=== PATIENT | female | born 1935 | race Caucasian/White ===

== ENCOUNTER → 2017-12-10 | Outpatient (CLI) | payer MEDICARE, BC ==
[2017-12-10 13:37] LABS: Blood Urea Nitrogen 10 mg/dL (7-17)
--- NOTE | 2017-12-10 15:20 | CT ---
EXAMINATION TYPE: CT abdomen pelvis w con DATE OF EXAM: 12/10/2017 HISTORY: Abdominal pain CT DLP: 369.2mGycm Automated Exposure Control for Dose Reduction was Utilized. CONTRAST: CT scan of the abdomen and pelvis is performed with IV Contrast, patient injected with 100 mL of Isov ue 300. COMPARISON: None. FINDINGS: LUNG BASES: There is a partial intrathoracic stomach seen in the posterior left lateral mediastinum c reating compressive atelectasis that is subsegmental the left lung base or in minimal right basilar s ubsegmental atelectasis is also seen. Heart is nonenlarged. Residual contrast is noted within the par tial intrathoracic stomach. LIVER/GB: There is a biliary stent extending from the common bile duct into the duodenum with moderat e intrahepatic biliary ductal dilatation and mild pneumobilia as well as marked extrahepatic biliary ductal dilatation. There is also pancreatic ductal dilatation. Additionally within the inferior right hepatic lobe there is a simple fluid attenuated 1.2 cm hepatic cyst. PANCREAS: Delayed images there is bulbous prominence and abnormal enhancement of the pancreatic head measuring approximately 3.7 x 2.6 cm abutting the superior mesenteric vein and less than 180 degrees encompassing the common bile duct and narrowing the common bile duct and its midportion with patency due to the stent. Findings are concerning for underlying pancreatic neoplasm given the proximal ducta l dilatation. This has mass effect upon the duodenum as is deviated right laterally. SPLEEN: There is displacement of the spleen anteriorly by prolapse of the colon posterior laterally. Otherwise the spleen is unremarkable. ADRENALS: No significant abnormality is seen. KIDNEYS: There is mild right-sided hydronephrosis although no obstructing calculus is seen along the course of the ureter on CT. BOWEL: Postsurgical changes of the rectum are noted. No large or small bowel dilatation to suggest ob struction. Moderate amount retained colonic stool is noted. Again there is prolapse of the left hemic olon posterior to the spleen. Surgical clip is present anterior to the cecum. Pelvic floor relaxation is seen within numerous loops of small bowel deep within the low pelvis. These again are nondilated. UTERUS/ADNEXA: Either significantly atrophied or surgically absent. LYMPH NODES: No greater than 1cm abdominal or pelvic lymph nodes are appreciated. OSSEOUS STRUCTURES: Severe levoscoliotic curvature of the thoracolumbar spine is seen in combination with multilevel degenerative change of the spine. OTHER: Within the right gluteal soft tissues there is a sacral nerve root stimulator present. IMPRESSION: 1. Findings concerning for underlying pancreatic head neoplasm measuring up to 3.7 cm creating pancre atic ductal dilatation, marked extrahepatic biliary duct dilatation and moderate intrahepatic biliary ductal dilatation with biliary stent in place. Findings could be confirmed with dynamic enhanced MR abdomen as the suspected pancreatic head mass is ill-defined and suspected only on delayed imaging. 2. Mild right-sided hydronephrosis without radiopaque obstructing calculus. This could relate to nonr adiopaque obstructing calculus or ureteral stricture. 3. Partial intrathoracic stomach and retained contrast within the intrathoracic stomach suggesting de layed transit.
== END | disposition home or self-care (01) ==
LOC: RADCTMAIN 12:54
PROVIDERS: ATTEND Family Medicine
DX: N13.30 Unspecified hydronephrosis (principal)
CPT/HCPCS: 82565; 84520; 74177; 36415; Q9967

== ENCOUNTER → 2018-01-08 | Outpatient (CLI) | payer MEDICARE, BC | END | disposition home or self-care (01) | LOC: RADMRIMAIN 11:17 | PROVIDERS: ATTEND Family Medicine | DX: Z53.9 Procedure and treatment not carried out, unspecified reason (principal) ==

== ENCOUNTER 2018-03-12 10:55 | Day surgery (SDC) | payer MEDICARE, BC ==
[2018-03-10 14:23] VITALS: BMI 22.6
[~2018-03-12 10:55] MED LIST: INDOMETHACIN 50MG SUPPOSITORY RECTAL ONE; LEVOFLOXACIN 500MG-D5W PMX 500 MG in DEXTROSE/WATER 1 100ML.BAG IVPB STA; LIDOCAINE 1% 20 ML VIAL (10MG/ML) FOR IV START INTRADERMA PRN
[2018-03-12] MEDS: LACTATED RINGERS 1,000 ML IV SCH (12:12)
[2018-03-12 12:31] LABS: Basophils % (A) 1 %; Eosinophils # (A) 0.1 k/uL (0-0.7); Eosinophils % (A) 2 %; Lymphocytes # (A) 0.8 k/uL (1.0-4.8); Lymphocytes % (A) 20 %; MCH 29.7 pg (25.0-35.0); MCHC 33.2 g/dL (31.0-37.0); MCV 89.5 fL (80.0-100.0); Mean Platelet Volume 6.5; Monocytes # (A) 0.3 k/uL (0-1.0); Monocytes % (A) 8 %; Neutrophils # (A) 2.9 k/uL (1.3-7.7); Neutrophils % (A) 68 %; Platelet Count 209 k/uL (150-450); RBC 4.69 m/uL (3.80-5.40); WBC 4.3 k/uL (3.8-10.6)
[2018-03-12 12:42] LABS: Anion Gap 10 mmol/L; Blood Urea Nitrogen 13 mg/dL (7-17); Calcium 9.1 mg/dL (8.4-10.2); Carbon Dioxide 29 mmol/L (22-30); Chloride 103 mmol/L (98-107); Glucose 97 mg/dL (74-99); Sodium 142 mmol/L (137-145); Total Bilirubin 1.5 mg/dL (0.2-1.3); Total Protein 6.9 g/dL (6.3-8.2)
[2018-03-12 12:48] LABS: ALT 29 U/L (9-52); AST 30 U/L (14-36); Alkaline Phosphatase 131 U/L (38-126); Potassium 4.2 mmol/L (3.5-5.1)
[2018-03-12 12:52] LABS: Prothrombin Time 10.2 sec (9.0-12.0)
[2018-03-12] MEDS ORDERED: LIDOCAINE 1% INJ 10MG/ML (20 ML MDV) ONE (15:07)
[2018-03-12] MEDS ORDERED: GLUCAGON 1 MG/ML VIAL ONE (15:07)
[2018-03-12] MEDS ORDERED: PROPOFOL 10 MG/ML 20 ML VIAL IV ONE (15:07)
[2018-03-12] MEDS ORDERED: LABETALOL 5 MG/ML VIAL MDV ONE (15:07)
--- NOTE | 2018-03-12 16:07 | P.PCN ---
Date of Procedure: 03/12/18 Procedure(s) Performed: Brief history: Patient is a 82 year-old pleasant lady scheduled for an ERCP as part of evaluation of abdominal pain and mild elevation of serum transaminases. She had a CT of the abdomen and pelvis done that showed dilated intra-and extra hepatic biliary system and a 3 cm lesion in the head of the pancreas. Possibility of a stone versus mass as suggested by the radiologist. The patient had history of CBD stones in 2013 at which time she had an ERCP with the CBD stent placement and multiple stones extracted. Following the procedure she underwent gallbladder surgery with CBD exploration at the time of surgery no obvious CBD stones were identified. However she continued to have the stent in place and recent CAT scan showed CBD stent along with possible stone versus mass. She is hence scheduled for an ERCP to evaluate further. Procedure performed: ERCP, CBD stent removal/ extension of the biliary sphincterotomy, multiple stone extraction and CBD stent placement Preoperative diagnoses: Dilated CBD, possible CBD stone versus pancreatic mass IV sedation per anesthesia: Procedure: After informed consent was obtained from the patient and after the risks benefits and complications including bleeding perforation and pancreatitis explained in detail the patient was brought into the endoscopy unit. The patient was placed in prone position and IV conscious sedation was administered by anesthesia under continuous monitoring. The Olympus side-viewing duodenoscope was then inserted into the mouth and esophagus intubated without any difficulty. The scope was gradually advanced into the stomach and duodenum. The major papilla was identified without any difficulty. There was CBD stent in place which was removed without any difficulty. Initial cannulation resulted in opacification of the common bile duct through the existing biliary sphincterotomy site. Upon injection of the dye the common bile duct is dilated measuring at least 2 cm in diameter with multiple filling defects noted. At this time an 8 mm balloon was passed into the proximal CBD and multiple stones were removed. Following this an occlusion cholangiogram was performed. I could not remove couple of large stones administered in the proximal CBD. At this time I proceeded with extension of the biliary enterotomy site using a biliary sphincterotome by another 5 mm. Following this a 15 mm balloon was passed into the common bile duct over the guidewire and despite multiple attempts I was not able to remove the other stones. After trying this for several times I proceeded with a 7-Lithuanian 5 cm pigtail stent placement into the proximal CBD. The pancreatic duct was not cannulated. Patient tolerated the procedure well. Impression: Dilated common bile duct with multiple filling defects status post extension of the biliary sphincterotomy, multiple stone extraction, and CBD stent placement as toast large stones could not be extracted Pancreatic duct was not cannulated Previously placed CBD stent was removed Recommendations: The findings of this examination were discussed with the patient as well as a family. She'll be on a clear liquid diet. She'll be seen in office in 2 weeks.
[2018-03-12] MEDS ORDERED: IOHEXOL 300 MG/ML 50 ML BOTTLE MISCELLANE ONE (16:08)
[2018-03-12] MEDS ORDERED: ACETAMINOPHEN TAB 325 MG TAB PO PRN (16:56)
[2018-03-12] MEDS ORDERED: ONDANSETRON 4 MG/2 ML VIAL IVP PRN (16:56)
--- NOTE | 2018-03-12 16:59 | FL ---
Fluoroscopy HISTORY: Abnormal CT, biliary dilation 1 minute 2 seconds fluoroscopy time supplied to the referring clinician. 1 intraoperative C-arm imag es document the procedure. See dictated report from gastroenterology.
[2018-03-12] MEDS ORDERED: DEXTROSE 5%-0.45% NACL 1,000 ML IV SCH (17:00)
[2018-03-12 17:44] LABS: Basophils % (A) 0 %; Eosinophils % (A) 1 %; HCT 41.7 % (34.0-46.0); HGB 13.6 gm/dL (11.4-16.0); Lymphocytes # (A) 0.7 k/uL (1.0-4.8); Lymphocytes % (A) 14 %; MCH 29.8 pg (25.0-35.0); MCHC 32.7 g/dL (31.0-37.0); MCV 91.3 fL (80.0-100.0); Mean Platelet Volume 7.2; Monocytes # (A) 0.3 k/uL (0-1.0); Monocytes % (A) 6 %; Neutrophils # (A) 3.8 k/uL (1.3-7.7); Neutrophils % (A) 78 %; Platelet Count 179 k/uL (150-450); RBC 4.57 m/uL (3.80-5.40); RDW 13.1 % (11.5-15.5); WBC 4.9 k/uL (3.8-10.6)
--- NOTE | 2018-03-12 19:34 | HP ---
HISTORY AND PHYSICAL DATE OF DICTATION: 03/12/2018 Patient is an 82-year-old pleasant white female. She was scheduled for an outpatient ERCP as a part of evaluation of intermittent episodes of abdominal pain and mild elevation of LFTs. She had a CT of the abdomen and pelvis done in November of 2017 that showed a dilated intra- and extrahepatic biliary system with possible stone versus mass in the head of the pancreas. The patient has prior history of multiple CBD stones, for which she underwent ERCP with stone extraction, CBD stent placement in December of 2014 at [facility]. Subsequently she had gallbladder surgery as well as common bile duct exploration for stones that could not be extracted during the ERCP. As per the operative report by Dr. Reddy, no CBD stones were noted at the time of CBD exploration/cholangioscopy. Subsequently the patient never had the CBD stent removed. The recent CT scan in November did show presence of CBD stent still in place. She underwent an ERCP at 3 p.m. today. The ERCP revealed dilated common bile duct with multiple stones in the CBD. Biliary sphincterotomy was extended and balloon stone extraction was performed, but a couple of stones which were measuring about 1.5 cm in size could not be extracted despite multiple attempts with the balloon. Following the procedure, a CBD stent was placed to ensure biliary drainage. The patient was sent to Postop and while in Postop Recovery she threw up blood with clots, and hence the patient is being admitted to the hospital for close monitoring. At present she denies any abdominal pain. She complains of nausea. No fever, chills, night sweats. PAST MEDICAL HISTORY: Unremarkable. PAST SURGICAL HISTORY: 1. ERCP in December of 2014. 2. Gallbladder surgery with CBD exploration by Dr. Reddy in December of 2014 at [facility]. MEDICATIONS AT HOME: None. ALLERGIES: NO KNOWN DRUG ALLERGIES. SOCIAL HISTORY: No smoking. No alcohol use. FAMILY HISTORY: Unremarkable. REVIEW OF SYSTEMS: CARDIOPULMONARY: No chest pain, shortness of breath. GENITOURINARY: No dysuria or hematuria. MUSCULOSKELETAL: Unremarkable. SKIN: Unremarkable. ENDOCRINE: Unremarkable. PSYCHIATRIC: Unremarkable. NEUROLOGY: Unremarkable. ENT/VISION: Unremarkable. CONSTITUTIONAL: No recent weight loss. No fever, chills, night sweats. PHYSICAL EXAMINATION: Blood pressure 179/75, pulse 75, temperature 97.7. HEENT examination unremarkable. Conjunctivae pink. Sclerae anicteric. Oral cavity no lesions. NECK: No JVD or lymph node enlargement. CHEST: Clear to auscultation. HEART: Regular rate and rhythm. ABDOMEN: Soft. It was nontender, nondistended. Liver and spleen were not palpable. Bowel sounds were positive. EXTREMITIES: No pedal edema. SKIN: No rashes. NEUROLOGIC: Alert and oriented x3. No focal deficits. LABS: Repeat labs at 5 p.m. show WBC 4.9, hemoglobin 13.6, platelets normal. IMPRESSION: 1. Upper gastrointestinal bleed post ERCP. CBC is stable. Hemoglobin 13.6 g/dL. 2. Status post ERCP with CBD stone extraction and CBD stent placement as described above. PLAN: 1. IV fluids. 2. Clear liquid diet. 3. Repeat CBC in the morning. 4. IV Protonix 40 mg q.12 hours. 5. Plan was discussed with the patient's daughter, who was at the bedside. MMODL / IJN: [id number] /
[2018-03-12] MEDS: PANTOPRAZOLE 40 MG/10 ML VIAL IVP SCH (20:04)
[2018-03-13] MEDS: LACTATED RINGERS 1,000 ML IV SCH (05:23)
[2018-03-13 06:27] VITALS: BP 116/64; PULSE 76; RESP 14; TEMP 98.3
[2018-03-13 07:36] LABS: Basophils % (A) 1 %; Eosinophils # (A) 0.1 k/uL (0-0.7); Eosinophils % (A) 1 %; HCT 36.1 % (34.0-46.0); HGB 12.2 gm/dL (11.4-16.0); Lymphocytes # (A) 0.9 k/uL (1.0-4.8); Lymphocytes % (A) 17 %; MCHC 33.7 g/dL (31.0-37.0); Mean Platelet Volume 7.1; Monocytes # (A) 0.4 k/uL (0-1.0); Monocytes % (A) 8 %; Neutrophils # (A) 3.7 k/uL (1.3-7.7); Neutrophils % (A) 71 %; Platelet Count 180 k/uL (150-450); RBC 4.05 m/uL (3.80-5.40); RDW 13.1 % (11.5-15.5); WBC 5.2 k/uL (3.8-10.6)
[2018-03-13] MEDS: PANTOPRAZOLE 40 MG/10 ML VIAL IVP SCH (08:25)
--- NOTE | 2018-03-13 08:56 | DS ---
DISCHARGE SUMMARY DATE OF DICTATION: 03/13/2018 INDICATION FOR ADMISSION: 1. Acute upper gastrointestinal bleed. 2. Status post ERCP with CBD stone extraction and CBD stent placement. PROCEDURES PERFORMED: ERCP. HISTORY OF PRESENT ILLNESS: The patient is an 82-year-old pleasant white female, scheduled for an outpatient ERCP as a part of evaluation of intermittent abdominal pain and mild elevation of LFTs. CT of the abdomen done in November of 2017 showed a dilated CBD, severe dilation of the common bile duct and intrahepatic biliary dilation with 3 cm lesion in the head of the pancreas suspicious for stone versus mass. The patient had prior history of CBD stones for which she underwent ERCP with CBD stent placement in December of 2014, followed by CBD exploration and cholecystectomy by Dr. Reddy. ERCP done yesterday showed evidence of multiple large CBD stone, which were removed a couple of them could not be removed and a CBD stent was placed. Following the procedure, patient had an episode of upper gastrointestinal bleed and she threw up multiple clots. Because of clinical concern for upper GI bleed, she was admitted to the hospital for further evaluation. HOSPITAL COURSE: The patient was started on IV fluids. She was on a liquid diet and was on IV Zofran as well as Protonix. Through the night, she did not have any episodes of bleeding. This morning she is feeling much better. No abdominal pain. No nausea, vomiting on a liquid diet, tolerating well. PHYSICAL EXAMINATION: She appears comfortable. No apparent distress. VITAL SIGNS: Stable. Blood pressure 126/61, pulse is 73, temperature 98.8. HEENT examination unremarkable. Sclerae anicteric. Oral cavity no lesions. Neck no jugular venous distention or lymph node enlargement. Chest was clear to auscultation. HEART: Regular rate and rhythm. Abdomen was soft, it was nontender, nondistended. Bowel sounds are positive. No organomegaly. Extremities: No pedal edema. Skin: No rashes. Neuro: She is alert and oriented x3. No focal deficits. LABS: From today WBC 5.2, hemoglobin 12.2, platelets are normal. IMPRESSION: 1. Upper gastrointestinal bleed following ERCP, 1 episode, hemoglobin stable, no further episodes of bleeding. 2. Multiple CBD stones, status post ERCP with partial stone extraction, status post CBD stent placement. PLAN: 1. Advance diet as tolerated. 2. Reviewed labs with the patient. 3. She will be discharged home today. 4. Follow up in office in 2 weeks. MMODL / IJN: [id number] /
== END 2018-03-13 13:29 | disposition home or self-care (01) ==
LOC: ORWHC2ENDO 10:55 → 4MS4W 16:16 → ORWHC2ENDO 03-13 13:29
PROVIDERS: ATTEND Internal Medicine Gastroenterology
DX: K80.50 Calculus of bile duct without cholangitis or cholecystitis without obstruction (principal); K92.2 Gastrointestinal hemorrhage, unspecified
CPT/HCPCS: 80053; 85025 ×2; 85610; 74330; 43264; 43276; J1610; J2405; J1956; J2001; J2704; C9113 ×2; Q9967; C1769; C2625; 43262; 43274; 43275; 43277

== ENCOUNTER 2023-04-20 10:36 | Emergency (ER) | payer MEDICARE, BC ==
--- NOTE | 2023-04-20 11:07 | ED ---
General Adult HPI - General Chief complaint: Syncope Stated complaint: Syncope Time Seen by Provider: 04/20/23 10:43 Source: family, RN/MD, RN notes reviewed, old records reviewed Mode of arrival: EMS Limitations: altered mental status - History of Present Illness Initial comments: 87-year-old female with an episode where she was unresponsive. This was while sitting at the table. There is no fall or injury. Patient had taken Motrin and marijuana, he approximately 2 hours prior to the episode. Family reports that she had some abnormal respirations and was difficult to arouse. Upon EMS arrival she was able to be aroused with light sternal rub according to the family. Patient is awake and at her baseline currently. She does have advanced dementia. - Related Data Home Medications Medication Instructions Recorded Confirmed No Known Home Medications 03/10/18 03/12/18 Allergies Allergy/AdvReac Type Severity Reaction Status Date / Time No Known Allergies Allergy Verified 04/20/23 11:00 Review of Systems ROS Statement: Those systems with pertinent positive or pertinent negative responses have been documented in the HPI. ROS Other: All systems not noted in ROS Statement are negative. Past Medical History Past Medical History: Memory Impairment History of Any Multi-Drug Resistant Organisms: None Reported Past Surgical History: Section Additional Past Surgical History / Comment(s): colonoscopy, bowel surgery Past Anesthesia/Blood Transfusion Reactions: No Reported Reaction Past Psychological History: No Psychological Hx Reported Smoking Status: Never smoker Past Alcohol Use History: None Reported Past Drug Use History: Marijuana - Past Family History Mother Family Medical History: No Reported History General Exam Limitations: altered mental status General appearance: alert, in no apparent distress Head exam: Present: atraumatic, normocephalic Eye exam: Present: normal appearance, PERRL ENT exam: Present: normal exam Neck exam: Present: normal inspection. Absent: tenderness, meningismus Respiratory exam: Present: normal lung sounds bilaterally. Absent: respiratory distress, wheezes Cardiovascular Exam: Present: regular rate, normal rhythm GI/Abdominal exam: Present: soft. Absent: distended, tenderness, guarding Extremities exam: Present: normal inspection, normal capillary refill. Absent: pedal edema Neurological exam: Present: alert. Absent: oriented X3, motor sensory deficit Psychiatric exam: Present: normal affect, normal mood Skin exam: Present: warm, dry, intact, normal color Course Vital Signs 04/20/23 04/20/23 10:48 12:14 Temperature 97.8 F Pulse Rate 65 60 Respiratory 18 20 Rate Blood Pressure 133/74 113/61 O2 Sat by Pulse 97 99 Oximetry Medical Decision Making - Medical Decision Making Was pt. sent in by a medical professional or institution ([facility], PROPERTY MANAGEMENT BOOKKEEPER, urgent care, hospital, or retirement...) When possible be specific @ -No Did you speak to anyone other than the patient for history (EMS, parent, family, police, friend...)? What history was obtained from this source @ -History is obtained from the son and daughter who were at bedside Did you review nursing and triage notes (agree or disagree)? Why? @ -I reviewed and agree with nursing and triage notes Were old charts reviewed (outside hosp., previous admission, EMS record, old EKG, old radiological studies, urgent care reports/EKG's, retirement records)? Report findings @ -No old charts were reviewed Differential Diagnosis (chest pain, altered mental status, abdominal pain women, abdominal pain men, vaginal bleeding, weakness, fever, dyspnea, syncope, headache, dizziness, GI bleed, back pain, seizure, CVA, palpatations, mental health, musculoskeletal)? @ -[Differential Syncope: Valvular disease, hypertrophic cardiomyopathy, pulmonary embolism, tamponade, tachycardia, bradycardia, KS, hypovolemia, hemorrhage, dissection, anemia, intracranial hemorrhage, seizure, hypoglycemia, carbon monoxide poisoning, this is not meant to be an all-inclusive list. EKG interpreted by me (3pts min.). @ EKG: Sinus rhythm rate of 63, MN interval 198, QRS duration 88, QTC [address] segment changes. X-rays interpreted by me (1pt min.). @ -None done CT interpreted by me (1pt min.). @ -None done U/S interpreted by me (1pt. min.). @ -None done What testing was considered but not performed or refused? (CT, X-rays, U/S, labs)? Why? @ -None What meds were considered but not given or refused? Why? @ -None Did you discuss the management of the patient with other professionals (professionals i.e. [facility], PROPERTY MANAGEMENT BOOKKEEPER, lab, RT, psych nurse, director social, legal financial specialist, teacher, project officer, rn case mgr)? Give summary @ -No Was smoking cessation discussed for >3mins.? @ -No Was critical care preformed (if so, how long)? @ -No Were there social determinants of health that impacted care today? How? (Homelessness, low income, unemployed, alcoholism, drug addiction, transportation, low edu. Level, literacy, decrease access to med. care, nursing home, rehab)? @ -No Was there de-escalation of care discussed even if they declined (Discuss DNR or withdrawal of care, Hospice)? DNR status @ -No What co-morbidities impacted this encounter? (DM, HTN, Smoking, COPD, CAD, Cancer, CVA, ARF, Chemo, Hep., AIDS, mental health diagnosis, sleep apnea, morbid obesity)? @ -Dementia Was patient admitted / discharged? Hospital course, mention meds given and route, prescriptions, significant lab abnormalities, going to OR and other pertinent info. @ -[87-year-old female with near syncopal episode or likely reaction to marijuana . Patient was difficult to arouse. She had stable vitals during transport. She has no complaints. Did obtain CBC and CMP. She has a mild hypokalemia and a low calcium which does correct to normal in the setting of hypoalbuminemia. No leukocytosis, no anemia. Patient is in sinus rhythm with stable blood pressure per chest given IV fluid in the emergency department. She is observed for several hours without change. She is stable for discharge at this time. Undiagnosed new problem with uncertain prognosis? @ -No Drug Therapy requiring intensive monitoring for toxicity (Heparin, Nitro, Insulin, Cardizem)? @ -No Were any procedures done? @ -No Diagnosis/symptom? @ -[Drug effect, syncope Acute, or Chronic, or Acute on Chronic? @ -Acute Uncomplicated (without systemic symptoms) or Complicated (systemic symptoms)? @ -default Side effects of treatment? @ -No Exacerbation, Progression, or Severe Exacerbation? @ -No Poses a threat to life or bodily function? How? (Chest pain, [place], KS, pneumonia, PE, COPD, DKA, ARF, appy, cholecystitis, CVA, Diverticulitis, Homicidal, Suicidal, threat to staff... and all critical care pts) @ -[Low risk at this time - Lab Data Result diagrams: 04/20/23 11:32 04/20/23 11:32 Lab Results 04/20/23 04/20/23 Range/Units 11:32 11:32 WBC 8.5 (3.8-10.6) k/uL RBC 3.72 L (3.80-5.40) m/uL Hgb 11.8 (11.4-16.0) gm/dL Hct 35.4 (34.0-46.0) % MCV 95.3 (80.0-100.0) fL MCH 31.7 (25.0-35.0) pg MCHC 33.3 (31.0-37.0) g/dL RDW 12.7 (11.5-15.5) % Plt Count 146 L (150-450) k/uL MPV 8.5 Neutrophils % 83 % Lymphocytes % 6 % Monocytes % 9 % Eosinophils % 0 % Basophils % 0 % Neutrophils # 7.0 (1.3-7.7) k/uL Lymphocytes # 0.5 L (1.0-4.8) k/uL Monocytes # 0.8 (0-1.0) k/uL Eosinophils # 0.0 (0-0.7) k/uL Basophils # 0.0 (0-0.2) k/uL Sodium 137 (137-145) mmol/L Potassium 3.3 L (3.5-5.1) mmol/L Chloride 102 (98-107) mmol/L Carbon Dioxide 24 (22-30) mmol/L Anion Gap 11 mmol/L BUN 21 H (7-17) mg/dL Creatinine 0.58 (0.52-1.04) mg/dL Est GFR (CKD-EPI)AfAm >90 (>60 ml/min/1.73 sqM) Est GFR (CKD-EPI)NonAf 83 (>60 ml/min/1.73 sqM) Glucose 140 H (74-99) mg/dL Calcium 7.8 L (8.4-10.2) mg/dL Magnesium 1.8 (1.6-2.3) mg/dL Total Bilirubin 2.2 H (0.2-1.3) mg/dL AST 23 (14-36) U/L ALT 13 (4-34) U/L Alkaline Phosphatase 94 (38-126) U/L Total Protein 5.6 L (6.3-8.2) g/dL Albumin 3.2 L (3.5-5.0) g/dL Disposition Clinical Impression: Marijuana use Disposition: HOME SELF-CARE Condition: Fair Instructions (If sedation given, give patient instructions): Syncope (ED) Is patient prescribed a controlled substance at d/c from ED?: No Referrals: None,Stated [Primary Care Provider] - 1-2 days Time of Disposition: 12:36
[2023-04-20 11:51] LABS: Basophils % (A) 0 %; Eosinophils % (A) 0 %; HCT 35.4 % (34.0-46.0); HGB 11.8 gm/dL (11.4-16.0); Lymphocytes # (A) 0.5 k/uL (1.0-4.8); Lymphocytes % (A) 6 %; MCH 31.7 pg (25.0-35.0); MCHC 33.3 g/dL (31.0-37.0); MCV 95.3 fL (80.0-100.0); Mean Platelet Volume 8.5; Monocytes # (A) 0.8 k/uL (0-1.0); Monocytes % (A) 9 %; Neutrophils % (A) 83 %; Platelet Count 146 k/uL (150-450); RBC 3.72 m/uL (3.80-5.40); RDW 12.7 % (11.5-15.5); WBC 8.5 k/uL (3.8-10.6)
[2023-04-20 12:18] LABS: ALT 13 U/L (4-34); AST 23 U/L (14-36); African American GFR (CKD) >90 (>60 ml/min/1.73 sqM); Albumin 3.2 g/dL (3.5-5.0); Alkaline Phosphatase 94 U/L (38-126); Anion Gap 11 mmol/L; Blood Urea Nitrogen 21 mg/dL (7-17); Calcium 7.8 mg/dL (8.4-10.2); Carbon Dioxide 24 mmol/L (22-30); Chloride 102 mmol/L (98-107); Glucose 140 mg/dL (74-99); Magnesium 1.8 mg/dL (1.6-2.3); Non-African American GFR(CKD) 83 (>60 ml/min/1.73 sqM); Potassium 3.3 mmol/L (3.5-5.1); Sodium 137 mmol/L (137-145); Total Bilirubin 2.2 mg/dL (0.2-1.3); Total Protein 5.6 g/dL (6.3-8.2)
[2023-04-20 13:58] VITALS: BP 133/75; PULSE 61; RESP 18; TEMP 98.1
== END 2023-04-20 13:44 | disposition home or self-care (01) ==
LOC: EC 10:36
DX: F12.90 Cannabis use, unspecified, uncomplicated (principal)
CPT/HCPCS: 36415; 80053; 83735; 85025; 93005; 99285